=== PATIENT | female | born 1990 | race Caucasian/White ===

== ENCOUNTER 2018-11-25 13:01 | Emergency (ER) | payer SELFPAY ==
[~2018-11-25] VITALS: Ht 162.6 cm; Wt 78.0 kg
--- NOTE | 2018-11-25 13:34 | NUR ---
PT CAME TO ER WITH C/O OF LEFT ANKLE PAIN 5/10 THAT WAS SPRAINED ABOUT 3x MONTHS AGO. NO EDEMA NOTED IN ANKLE AREA BILATERALLY. NO SOB. NAD. PT CONNECTED TO MONITOR. WILL CONTINUE TO MONITOR FOR SAFETY.
--- NOTE | 2018-11-25 14:57 | NUR ---
Patient discharged to home in stable condition. Written and verbal after care instructions given. Patient verbalizes understanding of instruction.
[2018-11-25 14:59] VITALS: BP 117/67
== END 2018-11-25 14:59 | disposition home or self-care (01) ==
LOC: ER 13:01
DX: S93.692A Other sprain of left foot, initial encounter (principal); F41.9 Anxiety disorder, unspecified; X50.1XXA Overexertion from prolonged static or awkward postures, initial encounter; Y93.89 Activity, other specified; Y92.89 Other specified places as the place of occurrence of the external cause; Y99.8 Other external cause status
CPT/HCPCS: 73630-TC